=== PATIENT | male | born 2000 | race African-American/Black ===

== ENCOUNTER 2024-05-15 18:49 | Emergency (ER) | payer SELFPAY ==
[~2024-05-15] VITALS: Ht 182.9 cm; Wt 61.0 kg
[2024-05-15 18:51] VITALS: PULSE 99; O2SAT 97
[2024-05-15 18:57] VITALS: BP 122/84; RESP 18; TEMP 98.5; O2SAT 98
[2024-05-15] MEDS ORDERED: ALBU18HF2 IH (19:21)
[2024-05-15] MEDS ORDERED: IBUP-2029 MT (19:34)
== END 2024-05-15 20:29 | disposition home or self-care (01) ==
LOC: ER 18:49
DX: J45.909 Unspecified asthma, uncomplicated (principal); R05.9 Cough, unspecified; M54.9 Dorsalgia, unspecified
CPT/HCPCS: 71045; 99283